=== PATIENT | male | born 1955 | race African-American/Black ===

== ENCOUNTER 2021-06-30 14:02 | Inpatient (IN) | payer OTHER ==
[2021-06-30 14:52] LABS: #Lymphocytes 0.9 thou/uL (1.20-3.40); #Monocytes 0.8 thou/uL (0.11-0.59); #Neutrophils 11.6 thou/uL (1.40-6.50); %Basophils 0.1 % (0.0-1.0); %Eosinophils 0.1 % (0.0-10.0); %Lymphocytes 7.1 % (21.0-51.0); %Monocytes 5.8 % (0.0-10.0); %Neutrophils 86.9 % (42.0-75.0); Hemoglobin 16.1 g/dL (14.0-18.0); Mean Corpuscular HGB CONC 31.3 g/dL (32.0-36.0); Mean Corpuscular Hemoglobin 28.4 pg (27.0-31.0); Mean Corpuscular Volume 90.6 fL (78.0-98.0); Mean Platelet Volume 7.4 fL (7.4-10.4); Platelet Count 368 thou/uL (130-400); RBC Distribution Width 12.5 % (11.5-14.5); Red Blood Cell (RBC) Count 5.69 mill/uL (4.70-6.10); White Blood Cell (WBC) Count 13.4 thou/uL (4.8-10.8)
[2021-06-30] MEDS ORDERED: cefTRIAXone\\ROCEPHIN 1 GM VIAL ONE (15:00)
[2021-06-30 15:17] LABS: ALT (SGPT) 10 U/L (8-55); AST (SGOT) 11 U/L (5-34); Albumin 4.1 g/dL (3.4-4.8); Alkaline Phosphatase 88 U/L (40-110); Anion Gap 15 mmol/L (10-20); BUN (Urea Nitrogen) 16 mg/dL (8.4-25.7); Bilirubin, Total 0.8 mg/dL (0.2-1.2); Calc. Creatinine Clearance 0 mL/min (70-130); Calcium 10.1 mg/dL (7.8-10.44); Carbon Dioxide 27 mmol/L (23-31); Chloride 101 mmol/L (98-107); Glucose 228 mg/dL (80-115); Lipase 46 U/L (8-78); Magnesium 2.1 mg/dL (1.6-2.6); Potassium 4.5 mmol/L (3.5-5.1); Protein, Total 8.1 g/dL (5.8-8.1); Sodium 138 mmol/L (136-145)
[2021-06-30 16:01] LABS: Bacteria/HPF None Seen HPF (None Seen); Bilirubin Negative (Negative); Blood, Urine Negative (Negative); Clarity Clear (Clear); Glucose, Urine (Dipstick) 200 mg/dL (Negative); Ketone, Urine Negative (Negative); Leukocyte Negative Leu/uL (Negative); Nitrite Negative (Negative); Protein, Urine (Dipstick) 100 mg/dL (Neg-Trace); RBC/HPF 0-3 HPF (0-3); Specific Gravity, Urine 1.033 (1.002-1.036); Squamous Epithelial 0-3 HPF (0-3); Urobilinogen 3 mg/dL (Less than 2); WBC/HPF 0-3 HPF (0-3); pH, Urine 5.5 (5.0-9.0)
[2021-06-30] MEDS ORDERED: Vancomycin 1 GM/200 ML BAG ONE (16:07)
[2021-06-30] MEDS ORDERED: Acetaminophen 500 MG TAB ONE (16:07)
[2021-06-30] MEDS ORDERED: Ondansetron PF 4 MG/2 ML Vial ONE (16:14)
[2021-06-30] MEDS ORDERED: Furosemide 40 MG/4 ML VIAL ONE (16:14)
[2021-06-30 16:48] LABS: Free T4 (Free Thyroxine) 1.19 ng/dL (0.70-1.48); Thyroid Stimulating Hormone 0.3489 uIU/mL (0.35-4.94)
[2021-06-30 17:36] LABS: SARS-CoV-2 NAA Rapid Test Not Detected (NotDetected)
[2021-06-30 19:09] LABS: Lactic Acid 2.4 mmol/L (0.5-2.2)
[2021-06-30] MEDS ORDERED: Calcium Carbonate 500 MG ChewTAB PO PRN (19:33)
[2021-06-30] MEDS ORDERED: Dextrose 5% in Water 1,000 ML IV PRN (19:33)
[2021-06-30] MEDS ORDERED: Dextrose 50% Abboject 50 ML SYRINGE SLOW IVP PRN (19:33)
[2021-06-30] MEDS ORDERED: Acetaminophen 325 MG TAB PO PRN (19:33)
[2021-06-30] MEDS ORDERED: Acetaminophen 650 MG Suppository PR PRN (19:33)
[2021-06-30] MEDS ORDERED: HumaLOG 300 UNITS/3 ML VIAL SC PRN ×2 (19:36)
[2021-06-30] MEDS ORDERED: predniSONE 20 MG TAB PO SCH (20:45)
[2021-07-01 05:00] LABS: Hemoglobin 14.9 g/dL (14.0-18.0); Mean Corpuscular HGB CONC 32.6 g/dL (32.0-36.0); Mean Corpuscular Hemoglobin 29.4 pg (27.0-31.0); Mean Corpuscular Volume 90.2 fL (78.0-98.0); Mean Platelet Volume 7.1 fL (7.4-10.4); Platelet Count 357 thou/uL (130-400); RBC Distribution Width 12.4 % (11.5-14.5); Red Blood Cell (RBC) Count 5.08 mill/uL (4.70-6.10); White Blood Cell (WBC) Count 13.8 thou/uL (4.8-10.8)
[2021-07-01 05:23] LABS: Anion Gap 14 mmol/L (10-20); BUN (Urea Nitrogen) 15 mg/dL (8.4-25.7); Calc. Creatinine Clearance 56 mL/min (70-130); Calcium 9.7 mg/dL (7.8-10.44); Carbon Dioxide 25 mmol/L (23-31); Chloride 100 mmol/L (98-107); Glucose 259 mg/dL (80-115); Sodium 135 mmol/L (136-145)
[2021-07-01 05:55] LABS: Band 5 % (5-11); Lymphocytes 4 % (21-51); MDiff Complete? YES; Monocytes 4 % (0-10); Neutrophil 87 % (42-75)
[2021-07-01] MEDS ORDERED: FLU VACC QS2021-22(65YR UP)/PF 240 MCG/0.7 ML SYRINGE IM ONE (09:00)
[2021-07-01] MEDS ORDERED: HumaLOG 300 UNITS/3 ML VIAL SC PRN (09:08)
[2021-07-01] MEDS ORDERED: Ondansetron PF 4 MG/2 ML Vial IVP PRN (09:34)
[2021-07-01] MEDS ORDERED: Doxycycline 100 MG CAP PO SCH ×2 (10:00→10:01)
[2021-07-01] MEDS: predniSONE 20 MG TAB PO SCH (10:02)
[2021-07-01] MEDS: Enoxaparin Sodium 30 MG/0.3 ML SYRINGE SC SCH (10:02)
[2021-07-01] MEDS ORDERED: ISOVUE-370 76%-LOCM 1 ML ONE (11:17)
[2021-07-01] MEDS ORDERED: Lactated Ringer's 500 ML IV SCH (12:00)
[2021-07-01] MEDS: HumaLOG 300 UNITS/3 ML VIAL SC PRN ×2 (12:07→17:56)
[2021-07-01] MEDS: Tamsulosin HCl 0.4 MG CAP PO SCH (20:28)
[2021-07-01] MEDS: Cefdinir 300 MG CAP PO SCH (20:28)
[2021-07-02 05:36] LABS: #Lymphocytes 1.9 thou/uL (1.20-3.40); #Neutrophils 12.5 thou/uL (1.40-6.50); %Basophils 0.1 % (0.0-1.0); %Eosinophils 0.3 % (0.0-10.0); %Lymphocytes 12.2 % (21.0-51.0); %Monocytes 6.2 % (0.0-10.0); %Neutrophils 81.3 % (42.0-75.0); Hemoglobin 15.5 g/dL (14.0-18.0); Mean Corpuscular HGB CONC 30.6 g/dL (32.0-36.0); Mean Corpuscular Hemoglobin 28.2 pg (27.0-31.0); Mean Corpuscular Volume 92.2 fL (78.0-98.0); Mean Platelet Volume 7.9 fL (7.4-10.4); Platelet Count 349 thou/uL (130-400); RBC Distribution Width 12.5 % (11.5-14.5); White Blood Cell (WBC) Count 15.3 thou/uL (4.8-10.8)
[2021-07-02 05:58] LABS: Anion Gap 15 mmol/L (10-20); BUN (Urea Nitrogen) 17 mg/dL (8.4-25.7); Calc. Creatinine Clearance 65 mL/min (70-130); Calcium 10.1 mg/dL (7.8-10.44); Carbon Dioxide 24 mmol/L (23-31); Chloride 103 mmol/L (98-107); Glucose 122 mg/dL (80-115); Phosphorus 3.3 mg/dL (2.3-4.7); Sodium 138 mmol/L (136-145)
[2021-07-02] MEDS: Cefdinir 300 MG CAP PO SCH ×2 (08:04→20:33)
[2021-07-02] MEDS: Enoxaparin Sodium 30 MG/0.3 ML SYRINGE SC SCH (08:05)
[2021-07-02] MEDS: predniSONE 20 MG TAB PO SCH (08:05)
[2021-07-02] MEDS: Doxycycline 100 MG CAP PO SCH ×2 (08:05→20:34)
[2021-07-02] MEDS ORDERED: Metoprolol Tartrate 25 MG TAB PO SCH ×2 (10:00→21:00)
[2021-07-02] MEDS: HumaLOG 300 UNITS/3 ML VIAL SC PRN ×2 (11:27→17:09)
[2021-07-02] MEDS ORDERED: Bisacodyl 5 MG TAB PO PRN (14:41)
[2021-07-02] MEDS ORDERED: Polyethylene Glycol 3350 17 GM Packet PO SCH (14:45)
[2021-07-02] MEDS: Senokot S 8.6-50 MG TAB PO SCH (20:33)
[2021-07-02] MEDS: Tamsulosin HCl 0.4 MG CAP PO SCH (20:33)
[2021-07-03 05:00] LABS: #Eosinphils 0.1 thou/uL (0.0-0.7); #Lymphocytes 2.1 thou/uL (1.20-3.40); #Monocytes 0.9 thou/uL (0.11-0.59); #Neutrophils 11.9 thou/uL (1.40-6.50); %Basophils 0.2 % (0.0-1.0); %Eosinophils 0.5 % (0.0-10.0); %Lymphocytes 13.9 % (21.0-51.0); %Monocytes 6.2 % (0.0-10.0); %Neutrophils 79.2 % (42.0-75.0); Hemoglobin 14.8 g/dL (14.0-18.0); Mean Corpuscular HGB CONC 31.2 g/dL (32.0-36.0); Mean Corpuscular Hemoglobin 28.3 pg (27.0-31.0); Mean Corpuscular Volume 90.5 fL (78.0-98.0); Mean Platelet Volume 7.4 fL (7.4-10.4); Platelet Count 385 thou/uL (130-400); RBC Distribution Width 12.3 % (11.5-14.5); Red Blood Cell (RBC) Count 5.23 mill/uL (4.70-6.10); White Blood Cell (WBC) Count 15.1 thou/uL (4.8-10.8)
[2021-07-03 05:22] LABS: Anion Gap 12 mmol/L (10-20); BUN (Urea Nitrogen) 25 mg/dL (8.4-25.7); Calc. Creatinine Clearance 62 mL/min (70-130); Calcium 9.3 mg/dL (7.8-10.44); Carbon Dioxide 26 mmol/L (23-31); Chloride 101 mmol/L (98-107); Cholesterol 226 mg/dl (< 200 Desired); Glucose 148 mg/dL (80-115); HDL Cholesterol 45 mg/dL (>60 Neg Risk); LDL Cholesterol, Calculated 155 mg/dL; Magnesium 1.8 mg/dL (1.6-2.6); Phosphorus 2.9 mg/dL (2.3-4.7); Potassium 4.1 mmol/L (3.5-5.1); Sodium 135 mmol/L (136-145); Triglycerides 128 mg/dL (Less than 150)
[2021-07-03] MEDS ORDERED: Magnesium 2 GM/50 ML 2 GM in Premix Bag 1 BAG IVPB SCH (06:15)
[2021-07-03] MEDS ORDERED: Sodium Phosphate 15 MMOL in Sodium Chloride 0.9% 250 ML 250 ML IVPB SCH ×2 (06:45→10:45)
[2021-07-03] MEDS: Enoxaparin Sodium 30 MG/0.3 ML SYRINGE SC SCH (08:50)
[2021-07-03] MEDS: Aspirin 81 mg Enteric Coated Tablet PO SCH (08:51)
[2021-07-03] MEDS: Senokot S 8.6-50 MG TAB PO SCH ×2 (08:51→20:53)
[2021-07-03] MEDS: Cefdinir 300 MG CAP PO SCH (08:51)
[2021-07-03] MEDS: Doxycycline 100 MG CAP PO SCH (08:51)
[2021-07-03] MEDS: predniSONE 20 MG TAB PO SCH (08:51)
[2021-07-03] MEDS ORDERED: Polyethylene Glycol 3350 17 GM Packet PO SCH (09:00)
[2021-07-03] MEDS ORDERED: Bisacodyl 5 MG TAB PO SCH (09:15)
[2021-07-03] MEDS: HumaLOG 300 UNITS/3 ML VIAL SC PRN (11:15)
[2021-07-03] MEDS ORDERED: ISOVUE-370 76%-LOCM 1 ML ONE (11:39)
[2021-07-03 14:57] LABS: Ref Lab Test Ordered RESP PROFILE; Reference Lab Name LABCORP
[2021-07-03] MEDS ORDERED: Pantoprazole 40 MG GRANULES PACKET PO SCH (16:00)
[2021-07-03] MEDS ORDERED: Carvedilol 3.125 MG TAB PO SCH (17:00)
[2021-07-03] MEDS ORDERED: Insulin Regular 300 UNITS/3 ML VIAL SC PRN (17:20)
[2021-07-03] MEDS: Insulin Regular 300 UNITS/3 ML VIAL SC PRN (18:01)
[2021-07-03] MEDS: Lantus 1000 UNITS/10 ML VIAL SC SCH (20:52)
[2021-07-03] MEDS: Polyethylene Glycol 3350 17 GM Packet PO SCH (20:53)
[2021-07-03] MEDS: Rosuvastatin 20 MG TAB PO SCH (20:53)
[2021-07-03] MEDS: Tamsulosin HCl 0.4 MG CAP PO SCH (20:53)
[2021-07-03] MEDS ORDERED: Rosuvastatin 20 MG TAB PO SCH (21:00)
[2021-07-04 05:12] LABS: Anion Gap 11 mmol/L (10-20); BUN (Urea Nitrogen) 25 mg/dL (8.4-25.7); Calc. Creatinine Clearance 61 mL/min (70-130); Carbon Dioxide 24 mmol/L (23-31); Chloride 103 mmol/L (98-107); Glucose 151 mg/dL (80-115); Phosphorus 3.5 mg/dL (2.3-4.7); Potassium 4.2 mmol/L (3.5-5.1); Sodium 134 mmol/L (136-145)
[2021-07-04 05:35] LABS: Band 1 % (5-11); Hemoglobin 15.8 g/dL (14.0-18.0); Lymphocytes 9 % (21-51); MDiff Complete? YES; Mean Corpuscular HGB CONC 33.1 g/dL (32.0-36.0); Mean Corpuscular Hemoglobin 29.8 pg (27.0-31.0); Mean Platelet Volume 6.8 fL (7.4-10.4); Monocytes 3 % (0-10); Neutrophil 87 % (42-75); Platelet Count 426 thou/uL (130-400); Platelet Morphology Comment Appears Increased; RBC Distribution Width 12.3 % (11.5-14.5); RBC Morphology Normal; Red Blood Cell (RBC) Count 5.29 mill/uL (4.70-6.10); White Blood Cell (WBC) Count 18.2 thou/uL (4.8-10.8)
[2021-07-04] MEDS: Insulin Regular 300 UNITS/3 ML VIAL SC PRN ×3 (06:03→17:40)
[2021-07-04] MEDS ORDERED: Carvedilol 3.125 MG TAB PO SCH ×2 (08:00→08:33)
[2021-07-04] MEDS: predniSONE 20 MG TAB PO SCH (08:55)
[2021-07-04] MEDS: Aspirin 81 mg Enteric Coated Tablet PO SCH (08:55)
[2021-07-04] MEDS: Pantoprazole 40 MG GRANULES PACKET PO SCH (08:55)
[2021-07-04] MEDS: Polyethylene Glycol 3350 17 GM Packet PO SCH ×2 (08:55→20:55)
[2021-07-04] MEDS: Senokot S 8.6-50 MG TAB PO SCH ×2 (08:55→20:56)
[2021-07-04] MEDS: Carvedilol 6.25 MG TAB PO SCH ×2 (08:56→17:40)
[2021-07-04] MEDS: Enoxaparin Sodium 30 MG/0.3 ML SYRINGE SC SCH (08:56)
[2021-07-04] MEDS: Lantus 1000 UNITS/10 ML VIAL SC SCH (20:55)
[2021-07-04] MEDS: Tamsulosin HCl 0.4 MG CAP PO SCH (20:56)
[2021-07-04] MEDS: Rosuvastatin 20 MG TAB PO SCH (20:56)
[2021-07-05 04:56] LABS: #Eosinphils 0.1 thou/uL (0.0-0.7); #Lymphocytes 2.1 thou/uL (1.20-3.40); #Monocytes 0.9 thou/uL (0.11-0.59); #Neutrophils 14.3 thou/uL (1.40-6.50); %Basophils 0.1 % (0.0-1.0); %Eosinophils 0.5 % (0.0-10.0); %Lymphocytes 12.3 % (21.0-51.0); %Monocytes 5.3 % (0.0-10.0); %Neutrophils 81.9 % (42.0-75.0); Hemoglobin 14.6 g/dL (14.0-18.0); Mean Corpuscular HGB CONC 32.9 g/dL (32.0-36.0); Mean Corpuscular Volume 91.1 fL (78.0-98.0); Mean Platelet Volume 7.4 fL (7.4-10.4); Platelet Count 384 thou/uL (130-400); RBC Distribution Width 12.4 % (11.5-14.5); Red Blood Cell (RBC) Count 4.87 mill/uL (4.70-6.10); White Blood Cell (WBC) Count 17.5 thou/uL (4.8-10.8)
[2021-07-05 05:12] LABS: Anion Gap 11 mmol/L (10-20); BUN (Urea Nitrogen) 30 mg/dL (8.4-25.7); Calc. Creatinine Clearance 52 mL/min (70-130); Calcium 8.9 mg/dL (7.8-10.44); Carbon Dioxide 25 mmol/L (23-31); Chloride 103 mmol/L (98-107); Glucose 145 mg/dL (80-115); Phosphorus 3.6 mg/dL (2.3-4.7); Potassium 4.2 mmol/L (3.5-5.1); Sodium 135 mmol/L (136-145)
[2021-07-05] MEDS: Insulin Regular 300 UNITS/3 ML VIAL SC PRN ×3 (06:12→17:12)
[2021-07-05] MEDS: Aspirin 81 mg Enteric Coated Tablet PO SCH (08:47)
[2021-07-05] MEDS: Carvedilol 6.25 MG TAB PO SCH ×2 (08:47→17:14)
[2021-07-05] MEDS: Senokot S 8.6-50 MG TAB PO SCH ×2 (08:47→21:04)
[2021-07-05] MEDS: Polyethylene Glycol 3350 17 GM Packet PO SCH ×2 (08:47→21:04)
[2021-07-05] MEDS: Pantoprazole 40 MG GRANULES PACKET PO SCH (08:47)
[2021-07-05] MEDS: Enoxaparin Sodium 30 MG/0.3 ML SYRINGE SC SCH (08:48)
[2021-07-05] MEDS ORDERED: Spironolactone 25 MG TAB PO SCH ×2 (09:22→09:30)
[2021-07-05 12:13] LABS: % Free PSA 8.2 % (.); Total PSA 7.7 ng/mL (0.0-4.0)
[2021-07-05] MEDS ORDERED: Pregabalin 75 MG CAP PO SCH (12:30)
[2021-07-05] MEDS ORDERED: Lantus 1000 UNITS/10 ML VIAL SC SCH ×2 (21:00)
[2021-07-05] MEDS: Rosuvastatin 20 MG TAB PO SCH (21:03)
[2021-07-05] MEDS: Tamsulosin HCl 0.4 MG CAP PO SCH (21:04)
[2021-07-06 04:47] LABS: #Eosinphils 0.2 thou/uL (0.0-0.7); #Lymphocytes 1.9 thou/uL (1.20-3.40); #Monocytes 0.9 thou/uL (0.11-0.59); #Neutrophils 12.7 thou/uL (1.40-6.50); %Basophils 0.1 % (0.0-1.0); %Eosinophils 1.3 % (0.0-10.0); %Monocytes 5.5 % (0.0-10.0); %Neutrophils 81.2 % (42.0-75.0); Hemoglobin 15.1 g/dL (14.0-18.0); Mean Corpuscular HGB CONC 32.3 g/dL (32.0-36.0); Mean Corpuscular Hemoglobin 29.8 pg (27.0-31.0); Mean Corpuscular Volume 92.2 fL (78.0-98.0); Mean Platelet Volume 7.2 fL (7.4-10.4); Platelet Count 382 thou/uL (130-400); RBC Distribution Width 12.6 % (11.5-14.5); Red Blood Cell (RBC) Count 5.08 mill/uL (4.70-6.10); White Blood Cell (WBC) Count 15.7 thou/uL (4.8-10.8)
[2021-07-06 05:21] LABS: Anion Gap 12 mmol/L (10-20); BUN (Urea Nitrogen) 26 mg/dL (8.4-25.7); Calc. Creatinine Clearance 60 mL/min (70-130); Calcium 8.6 mg/dL (7.8-10.44); Carbon Dioxide 22 mmol/L (23-31); Chloride 106 mmol/L (98-107); Glucose 242 mg/dL (80-115); Magnesium 1.9 mg/dL (1.6-2.6); Phosphorus 2.8 mg/dL (2.3-4.7); Potassium 4.4 mmol/L (3.5-5.1); Sodium 136 mmol/L (136-145)
[2021-07-06] MEDS ORDERED: Magnesium 2 GM/50 ML 1 GM in Premix Bag 1 BAG IVPB SCH (05:30)
[2021-07-06] MEDS: Insulin Regular 300 UNITS/3 ML VIAL SC PRN (05:39)
[2021-07-06] MEDS ORDERED: Sodium Chloride 0.9% 1,000 ML IV SCH ×2 (07:45→11:02)
[2021-07-06] MEDS ORDERED: CATH Communication Order-Pharmacy FS SCH (07:45)
[2021-07-06] MEDS ORDERED: Midazolam HCl 2 mg/2 ml Vial ONE (08:09)
[2021-07-06] MEDS ORDERED: Heparin 10,000 UNITS/ 10 ML VIAL ONE (08:10)
[2021-07-06] MEDS ORDERED: Lidocaine 1% (PF) 30 ML VIAL ONE (08:10)
[2021-07-06] MEDS ORDERED: Fentanyl 100 MCG/2 ML VIAL ONE (08:10)
[2021-07-06] MEDS ORDERED: Protamine Sulfate 50 MG/5 ML VIAL ONE (09:16)
[2021-07-06] MEDS ORDERED: DOPamine 400 MG/D5W 250 ML 250 ML ONE (09:25)
[2021-07-06] MEDS ORDERED: Polyethylene Glycol 3350 17 GM Packet PO PRN (09:45)
[2021-07-06] MEDS ORDERED: Senokot S 8.6-50 MG TAB PO PRN (09:46)
[2021-07-06] MEDS ORDERED: Bivalirudin 250 MG VIAL ONE (09:51)
[2021-07-06] MEDS ORDERED: Iopamidol 370 76% 100 ML VIAL ONE (10:50)
[2021-07-06] MEDS ORDERED: Nitroglycerin 0.4 MG TAB (25 Tab Bottle) SL PRN (11:02)
[2021-07-06] MEDS ORDERED: Sodium Chloride 0.9% 200 ML IV PRN (11:02)
[2021-07-06] MEDS: Spironolactone 25 MG TAB PO SCH (12:16)
[2021-07-06] MEDS: Aspirin 81 mg Enteric Coated Tablet PO SCH (13:15)
[2021-07-06] MEDS: Carvedilol 6.25 MG TAB PO SCH ×2 (13:45→16:40)
[2021-07-06] MEDS: Pantoprazole 40 MG GRANULES PACKET PO SCH (13:46)
[2021-07-06] MEDS: Pregabalin 75 MG CAP PO SCH (13:46)
[2021-07-06 16:24] LABS: SARS-CoV-2 NAA Rapid Test Not Detected (NotDetected)
[2021-07-06] MEDS: HumaLOG 300 UNITS/3 ML VIAL SC PRN (16:39)
[2021-07-06] MEDS: DOPamine 400 MG/D5W 250 ML 250 ML IVPB SCH (18:19)
[2021-07-06] MEDS: Polyethylene Glycol 3350 17 GM Packet PO SCH (19:21)
[2021-07-06] MEDS: Senokot S 8.6-50 MG TAB PO SCH (19:22)
[2021-07-06] MEDS: Rosuvastatin 20 MG TAB PO SCH (20:16)
[2021-07-07 05:26] LABS: #Eosinphils 0.1 thou/uL (0.0-0.7); #Lymphocytes 2.1 thou/uL (1.20-3.40); #Neutrophils 11.4 thou/uL (1.40-6.50); %Basophils 0.2 % (0.0-1.0); %Lymphocytes 14.2 % (21.0-51.0); %Monocytes 6.6 % (0.0-10.0); %Neutrophils 78.1 % (42.0-75.0); Hemoglobin 13.1 g/dL (14.0-18.0); Mean Corpuscular HGB CONC 31.5 g/dL (32.0-36.0); Mean Corpuscular Hemoglobin 28.9 pg (27.0-31.0); Mean Corpuscular Volume 91.5 fL (78.0-98.0); Mean Platelet Volume 7.4 fL (7.4-10.4); Platelet Count 346 thou/uL (130-400); RBC Distribution Width 12.4 % (11.5-14.5); Red Blood Cell (RBC) Count 4.53 mill/uL (4.70-6.10); White Blood Cell (WBC) Count 14.6 thou/uL (4.8-10.8)
[2021-07-07 05:41] LABS: Anion Gap 8 mmol/L (10-20); BUN (Urea Nitrogen) 21 mg/dL (8.4-25.7); Calc. Creatinine Clearance 63 mL/min (70-130); Calcium 8.5 mg/dL (7.8-10.44); Carbon Dioxide 27 mmol/L (23-31); Chloride 103 mmol/L (98-107); Glucose 217 mg/dL (80-115); Potassium 4.5 mmol/L (3.5-5.1); Sodium 133 mmol/L (136-145)
[2021-07-07] MEDS: Carvedilol 6.25 MG TAB PO SCH (07:48)
[2021-07-07] MEDS: Spironolactone 25 MG TAB PO SCH (07:48)
[2021-07-07] MEDS: Pantoprazole 40 MG GRANULES PACKET PO SCH (09:02)
[2021-07-07] MEDS: Pregabalin 75 MG CAP PO SCH (09:02)
[2021-07-07] MEDS: Aspirin 81 mg Enteric Coated Tablet PO SCH (09:02)
[2021-07-07] MEDS: HumaLOG 300 UNITS/3 ML VIAL SC PRN ×2 (10:58→21:04)
[2021-07-07] MEDS: DOPamine 400 MG/D5W 250 ML 250 ML IVPB SCH (13:02)
[2021-07-07] MEDS: Carvedilol 3.125 MG TAB PO SCH (16:33)
[2021-07-07] MEDS: Rosuvastatin 20 MG TAB PO SCH (21:03)
[2021-07-08 05:29] LABS: #Eosinphils 0.2 thou/uL (0.0-0.7); #Lymphocytes 1.5 thou/uL (1.20-3.40); %Basophils 0.1 % (0.0-1.0); %Eosinophils 1.1 % (0.0-10.0); %Monocytes 7.3 % (0.0-10.0); %Neutrophils 80.5 % (42.0-75.0); Hemoglobin 14.5 g/dL (14.0-18.0); Mean Corpuscular HGB CONC 32.4 g/dL (32.0-36.0); Mean Corpuscular Hemoglobin 29.6 pg (27.0-31.0); Mean Corpuscular Volume 91.5 fL (78.0-98.0); Platelet Count 345 thou/uL (130-400); RBC Distribution Width 12.6 % (11.5-14.5); White Blood Cell (WBC) Count 13.7 thou/uL (4.8-10.8)
[2021-07-08 05:52] LABS: Anion Gap 11 mmol/L (10-20); BUN (Urea Nitrogen) 18 mg/dL (8.4-25.7); Calc. Creatinine Clearance 60 mL/min (70-130); Calcium 9.1 mg/dL (7.8-10.44); Carbon Dioxide 28 mmol/L (23-31); Chloride 101 mmol/L (98-107); Glucose 162 mg/dL (80-115); Potassium 4.8 mmol/L (3.5-5.1); Sodium 135 mmol/L (136-145)
[2021-07-08] MEDS: HumaLOG 300 UNITS/3 ML VIAL SC PRN ×4 (06:25→20:49)
[2021-07-08 08:03] LABS: SARS-CoV-2 PCR by NAA Not Detected (NotDetected)
[2021-07-08] MEDS: Aspirin 81 mg Enteric Coated Tablet PO SCH (09:14)
[2021-07-08] MEDS: Pantoprazole 40 MG GRANULES PACKET PO SCH (09:14)
[2021-07-08] MEDS: Pregabalin 75 MG CAP PO SCH (09:14)
[2021-07-08] MEDS: Carvedilol 3.125 MG TAB PO SCH ×2 (09:15→17:02)
[2021-07-08] MEDS: Spironolactone 25 MG TAB PO SCH (09:15)
[2021-07-08] MEDS: DOPamine 400 MG/D5W 250 ML 250 ML IVPB SCH (09:18)
[2021-07-08] MEDS: Rosuvastatin 20 MG TAB PO SCH (20:49)
[2021-07-09] MEDS: DOPamine 400 MG/D5W 250 ML 250 ML IVPB SCH (02:49)
[2021-07-09 05:56] LABS: #Eosinphils 0.2 thou/uL (0.0-0.7); #Lymphocytes 1.6 thou/uL (1.20-3.40); #Monocytes 0.9 thou/uL (0.11-0.59); #Neutrophils 9.6 thou/uL (1.40-6.50); %Basophils 0.4 % (0.0-1.0); %Eosinophils 1.3 % (0.0-10.0); %Lymphocytes 12.9 % (21.0-51.0); %Monocytes 7.2 % (0.0-10.0); %Neutrophils 78.3 % (42.0-75.0); Mean Corpuscular HGB CONC 32.6 g/dL (32.0-36.0); Mean Corpuscular Hemoglobin 29.6 pg (27.0-31.0); Mean Corpuscular Volume 90.8 fL (78.0-98.0); Mean Platelet Volume 7.2 fL (7.4-10.4); Platelet Count 327 thou/uL (130-400); RBC Distribution Width 12.5 % (11.5-14.5); Red Blood Cell (RBC) Count 4.73 mill/uL (4.70-6.10); White Blood Cell (WBC) Count 12.3 thou/uL (4.8-10.8)
[2021-07-09 06:12] LABS: Anion Gap 13 mmol/L (10-20); BUN (Urea Nitrogen) 21 mg/dL (8.4-25.7); Calc. Creatinine Clearance 63 mL/min (70-130); Calcium 9.3 mg/dL (7.8-10.44); Carbon Dioxide 27 mmol/L (23-31); Chloride 101 mmol/L (98-107); Glucose 172 mg/dL (80-115); Potassium 4.7 mmol/L (3.5-5.1); Sodium 136 mmol/L (136-145)
[2021-07-09] MEDS: HumaLOG 300 UNITS/3 ML VIAL SC PRN ×2 (06:28→11:28)
[2021-07-09] MEDS ORDERED: Gabapentin 100 MG CAP PO SCH (08:30)
[2021-07-09] MEDS ORDERED: Insulin Glargine 10 UNITS in Pre-Filled Syringe 1 EACH SC SCH (09:00)
[2021-07-09] MEDS: Spironolactone 25 MG TAB PO SCH (09:52)
[2021-07-09] MEDS: Pantoprazole 40 MG GRANULES PACKET PO SCH (09:52)
[2021-07-09] MEDS: Pregabalin 75 MG CAP PO SCH (09:52)
[2021-07-09] MEDS: Aspirin 81 mg Enteric Coated Tablet PO SCH (09:52)
[2021-07-09] MEDS: Carvedilol 3.125 MG TAB PO SCH ×2 (10:32→16:53)
[2021-07-09 11:51] VITALS: BMI 21.6
[2021-07-09] MEDS ORDERED: DOPamine 400 MG/D5W 250 ML 250 ML IVPB SCH (13:00)
[2021-07-09] MEDS: Rosuvastatin 20 MG TAB PO SCH (21:44)
[2021-07-10 04:40] LABS: Anion Gap 12 mmol/L (10-20); BUN (Urea Nitrogen) 20 mg/dL (8.4-25.7); Calc. Creatinine Clearance 58 mL/min (70-130); Calcium 9.6 mg/dL (7.8-10.44); Carbon Dioxide 25 mmol/L (23-31); Chloride 104 mmol/L (98-107); Glucose 131 mg/dL (80-115); Potassium 4.6 mmol/L (3.5-5.1); Sodium 136 mmol/L (136-145)
[2021-07-10 05:01] LABS: #Eosinphils 0.1 thou/uL (0.0-0.7); #Lymphocytes 1.8 thou/uL (1.20-3.40); #Monocytes 0.9 thou/uL (0.11-0.59); %Basophils 0.3 % (0.0-1.0); %Eosinophils 1.1 % (0.0-10.0); %Lymphocytes 13.8 % (21.0-51.0); %Monocytes 6.9 % (0.0-10.0); %Neutrophils 77.9 % (42.0-75.0); Hemoglobin 14.4 g/dL (14.0-18.0); Mean Corpuscular Hemoglobin 29.6 pg (27.0-31.0); Mean Corpuscular Volume 89.6 fL (78.0-98.0); Mean Platelet Volume 7.5 fL (7.4-10.4); Platelet Count 318 thou/uL (130-400); RBC Distribution Width 12.6 % (11.5-14.5); Red Blood Cell (RBC) Count 4.86 mill/uL (4.70-6.10); White Blood Cell (WBC) Count 12.8 thou/uL (4.8-10.8)
[2021-07-10] MEDS: Spironolactone 25 MG TAB PO SCH (09:45)
[2021-07-10] MEDS: Aspirin 81 mg Enteric Coated Tablet PO SCH (10:17)
[2021-07-10] MEDS: Pregabalin 75 MG CAP PO SCH (10:17)
[2021-07-10] MEDS: Pantoprazole 40 MG GRANULES PACKET PO SCH (10:18)
[2021-07-10] MEDS: Lantus 1000 UNITS/10 ML VIAL SC SCH (10:22)
[2021-07-10] MEDS: Carvedilol 3.125 MG TAB PO SCH ×2 (10:27→17:50)
[2021-07-10] MEDS ORDERED: Lisinopril 2.5 MG TAB PO SCH (12:15)
[2021-07-10] MEDS: Rosuvastatin 20 MG TAB PO SCH (21:50)
[2021-07-10] MEDS ORDERED: Gabapentin 100 MG CAP PO SCH (22:45)
[2021-07-11 05:24] LABS: #Basophils 0.1 thou/uL (0.0-0.2); #Eosinphils 0.1 thou/uL (0.0-0.7); #Lymphocytes 1.7 thou/uL (1.20-3.40); #Monocytes 0.8 thou/uL (0.11-0.59); #Neutrophils 10.4 thou/uL (1.40-6.50); %Basophils 0.6 % (0.0-1.0); %Eosinophils 0.9 % (0.0-10.0); %Lymphocytes 12.9 % (21.0-51.0); %Monocytes 6.1 % (0.0-10.0); %Neutrophils 79.6 % (42.0-75.0); Hemoglobin 15.3 g/dL (14.0-18.0); Mean Corpuscular HGB CONC 30.6 g/dL (32.0-36.0); Mean Corpuscular Hemoglobin 27.8 pg (27.0-31.0); Mean Corpuscular Volume 91.1 fL (78.0-98.0); Mean Platelet Volume 7.3 fL (7.4-10.4); Platelet Count 325 thou/uL (130-400); RBC Distribution Width 12.7 % (11.5-14.5); Red Blood Cell (RBC) Count 5.49 mill/uL (4.70-6.10); White Blood Cell (WBC) Count 13.1 thou/uL (4.8-10.8)
[2021-07-11 05:28] LABS: Anion Gap 14 mmol/L (10-20); BUN (Urea Nitrogen) 28 mg/dL (8.4-25.7); Calc. Creatinine Clearance 48 mL/min (70-130); Calcium 9.7 mg/dL (7.8-10.44); Carbon Dioxide 23 mmol/L (23-31); Chloride 104 mmol/L (98-107); Glucose 157 mg/dL (80-115); Potassium 5.2 mmol/L (3.5-5.1); Sodium 136 mmol/L (136-145)
[2021-07-11] MEDS: Lantus 1000 UNITS/10 ML VIAL SC SCH (08:55)
[2021-07-11] MEDS: Pantoprazole 40 MG GRANULES PACKET PO SCH (08:57)
[2021-07-11] MEDS: Lisinopril 2.5 MG TAB PO SCH (08:57)
[2021-07-11] MEDS: Pregabalin 75 MG CAP PO SCH (08:57)
[2021-07-11] MEDS: Aspirin 81 mg Enteric Coated Tablet PO SCH (08:57)
[2021-07-11] MEDS: Spironolactone 25 MG TAB PO SCH (08:58)
[2021-07-11] MEDS: Carvedilol 3.125 MG TAB PO SCH ×2 (08:58→17:31)
[2021-07-11] MEDS ORDERED: Gabapentin 100 MG CAP PO SCH ×2 (09:00→14:30)
[2021-07-11] MEDS: HumaLOG 300 UNITS/3 ML VIAL SC PRN ×2 (14:48→21:54)
[2021-07-11] MEDS: Rosuvastatin 20 MG TAB PO SCH (21:53)
[2021-07-11] MEDS: Gabapentin 100 MG CAP PO SCH (21:54)
[2021-07-12 05:13] LABS: #Eosinphils 0.1 thou/uL (0.0-0.7); #Lymphocytes 1.9 thou/uL (1.20-3.40); #Monocytes 0.7 thou/uL (0.11-0.59); #Neutrophils 8.5 thou/uL (1.40-6.50); %Basophils 0.4 % (0.0-1.0); %Lymphocytes 16.8 % (21.0-51.0); %Neutrophils 75.8 % (42.0-75.0); Hemoglobin 15.1 g/dL (14.0-18.0); Mean Corpuscular HGB CONC 33.3 g/dL (32.0-36.0); Mean Corpuscular Hemoglobin 30.1 pg (27.0-31.0); Mean Corpuscular Volume 90.4 fL (78.0-98.0); Mean Platelet Volume 6.9 fL (7.4-10.4); Platelet Count 364 thou/uL (130-400); RBC Distribution Width 12.6 % (11.5-14.5); Red Blood Cell (RBC) Count 5.02 mill/uL (4.70-6.10); White Blood Cell (WBC) Count 11.2 thou/uL (4.8-10.8)
[2021-07-12 05:34] LABS: Anion Gap 13 mmol/L (10-20); BUN (Urea Nitrogen) 26 mg/dL (8.4-25.7); Calc. Creatinine Clearance 48 mL/min (70-130); Calcium 9.9 mg/dL (7.8-10.44); Carbon Dioxide 26 mmol/L (23-31); Chloride 102 mmol/L (98-107); Glucose 126 mg/dL (80-115); Potassium 4.8 mmol/L (3.5-5.1); Sodium 136 mmol/L (136-145)
[2021-07-12] MEDS: Spironolactone 25 MG TAB PO SCH (08:43)
[2021-07-12] MEDS: Aspirin 81 mg Enteric Coated Tablet PO SCH (08:43)
[2021-07-12] MEDS: Pantoprazole 40 MG GRANULES PACKET PO SCH (08:43)
[2021-07-12] MEDS: Gabapentin 100 MG CAP PO SCH ×3 (08:43→20:54)
[2021-07-12] MEDS: Lantus 1000 UNITS/10 ML VIAL SC SCH (08:44)
[2021-07-12] MEDS: Carvedilol 3.125 MG TAB PO SCH ×2 (08:44→16:07)
[2021-07-12] MEDS: Pregabalin 75 MG CAP PO SCH (08:44)
[2021-07-12] MEDS: Lisinopril 2.5 MG TAB PO SCH (08:45)
[2021-07-12] MEDS: HumaLOG 300 UNITS/3 ML VIAL SC PRN (17:28)
[2021-07-12] MEDS: Rosuvastatin 20 MG TAB PO SCH ×2 (20:54→21:10)
[2021-07-12] MEDS ORDERED: Rosuvastatin 20 MG TAB PO SCH (21:00)
[2021-07-13] MEDS: Acetaminophen/Codeine 30-300mg Tablet PO PRN (03:49)
[2021-07-13 05:49] LABS: Anion Gap 11 mmol/L (10-20); BUN (Urea Nitrogen) 26 mg/dL (8.4-25.7); Calc. Creatinine Clearance 54 mL/min (70-130); Calcium 9.4 mg/dL (7.8-10.44); Carbon Dioxide 24 mmol/L (23-31); Chloride 105 mmol/L (98-107); Glucose 164 mg/dL (80-115); Potassium 4.6 mmol/L (3.5-5.1); Sodium 135 mmol/L (136-145)
[2021-07-13] MEDS: HumaLOG 300 UNITS/3 ML VIAL SC PRN ×2 (05:50→11:30)
[2021-07-13] MEDS: Lantus 1000 UNITS/10 ML VIAL SC SCH (08:41)
[2021-07-13] MEDS: Pantoprazole 40 MG GRANULES PACKET PO SCH (08:41)
[2021-07-13] MEDS: Aspirin 81 mg Enteric Coated Tablet PO SCH (08:41)
[2021-07-13] MEDS: Spironolactone 25 MG TAB PO SCH (08:41)
[2021-07-13] MEDS: Lisinopril 2.5 MG TAB PO SCH (08:42)
[2021-07-13] MEDS: Carvedilol 3.125 MG TAB PO SCH (08:42)
[2021-07-13] MEDS: Gabapentin 100 MG CAP PO SCH ×3 (08:42→20:36)
[2021-07-13] MEDS: Pregabalin 75 MG CAP PO SCH (08:42)
[2021-07-13 15:42] LABS: SARS-CoV-2 PCR by NAA Not Detected (NotDetected)
[2021-07-13] MEDS ORDERED: DOPamine 400 MG/D5W 250 ML 250 ML IVPB SCH (16:08)
[2021-07-13] MEDS: Rosuvastatin 20 MG TAB PO SCH (20:36)
[2021-07-14] MEDS: HumaLOG 300 UNITS/3 ML VIAL SC PRN ×2 (05:46→12:37)
[2021-07-14] MEDS: Acetaminophen/Codeine 30-300mg Tablet PO PRN ×3 (10:03→21:40)
[2021-07-14] MEDS: Pregabalin 75 MG CAP PO SCH (10:06)
[2021-07-14] MEDS: Spironolactone 25 MG TAB PO SCH (10:06)
[2021-07-14] MEDS: Gabapentin 100 MG CAP PO SCH ×3 (10:06→21:39)
[2021-07-14] MEDS: Aspirin 81 mg Enteric Coated Tablet PO SCH (10:06)
[2021-07-14] MEDS: Lantus 1000 UNITS/10 ML VIAL SC SCH (10:07)
[2021-07-14] MEDS: Pantoprazole 40 MG GRANULES PACKET PO SCH (10:07)
[2021-07-14] MEDS ORDERED: DOPamine 400 MG/D5W 250 ML 250 ML IVPB SCH ×2 (10:15→17:18)
[2021-07-14] MEDS: Rosuvastatin 20 MG TAB PO SCH (21:39)
[2021-07-15 04:40] LABS: Anion Gap 15 mmol/L (10-20); BUN (Urea Nitrogen) 20 mg/dL (8.4-25.7); Calc. Creatinine Clearance 47 mL/min (70-130); Calcium 9.3 mg/dL (7.8-10.44); Carbon Dioxide 21 mmol/L (23-31); Chloride 105 mmol/L (98-107); Glucose 134 mg/dL (80-115); Potassium 4.6 mmol/L (3.5-5.1); Sodium 136 mmol/L (136-145)
[2021-07-15] MEDS: Aspirin 81 mg Enteric Coated Tablet PO SCH (09:30)
[2021-07-15] MEDS: Spironolactone 25 MG TAB PO SCH (09:30)
[2021-07-15] MEDS: Gabapentin 100 MG CAP PO SCH ×3 (09:30→21:25)
[2021-07-15] MEDS: Pregabalin 75 MG CAP PO SCH (09:30)
[2021-07-15] MEDS: Lantus 1000 UNITS/10 ML VIAL SC SCH (11:03)
[2021-07-15] MEDS: Pantoprazole 40 MG GRANULES PACKET PO SCH (11:03)
[2021-07-15 20:48] LABS: SARS-CoV-2 NAA Rapid Test Not Detected (NotDetected)
[2021-07-15] MEDS: Rosuvastatin 20 MG TAB PO SCH (21:25)
[2021-07-15] MEDS: Acetaminophen/Codeine 30-300mg Tablet PO PRN (21:26)
[2021-07-16] MEDS: Acetaminophen/Codeine 30-300mg Tablet PO PRN (06:28)
[2021-07-16] MEDS: Aspirin 81 mg Enteric Coated Tablet PO SCH (08:59)
[2021-07-16] MEDS: Gabapentin 100 MG CAP PO SCH ×2 (08:59→16:03)
[2021-07-16] MEDS: Spironolactone 25 MG TAB PO SCH (09:00)
[2021-07-16] MEDS: Pregabalin 75 MG CAP PO SCH (09:00)
[2021-07-16] MEDS: Pantoprazole 40 MG GRANULES PACKET PO SCH (09:01)
[2021-07-16] MEDS: Lantus 1000 UNITS/10 ML VIAL SC SCH (10:05)
[2021-07-16 22:11] VITALS: BP 121/57; TEMP 98.3
== END 2021-07-16 17:05 | disposition short-term general hospital (02) | DRG 286 ==
LOC: ERS 14:02 → 2NO 18:08 → CCU 07-06 09:36 → 2NO 07-09 14:26
PROVIDERS: ADMIT Emergency Medicine; ATTEND Emergency Medicine
PROC: 0T9B70Z Drainage of Bladder with Drainage Device, Via Natural or Artificial Opening (ICD-10-PCS; 2021-07-03)
PROC: 4A023N7 Measurement of Cardiac Sampling and Pressure, Left Heart, Percutaneous Approach (ICD-10-PCS; principal; 2021-07-06)
PROC: B2111ZZ Fluoroscopy of Multiple Coronary Arteries using Low Osmolar Contrast (ICD-10-PCS; 2021-07-06)
DX: I11.0 Hypertensive heart disease with heart failure (principal); I50.23 Acute on chronic systolic (congestive) heart failure; I47.2 Ventricular tachycardia; J11.1 Influenza due to unidentified influenza virus with other respiratory manifestations; I42.9 Cardiomyopathy, unspecified; J44.9 Chronic obstructive pulmonary disease, unspecified; E78.5 Hyperlipidemia, unspecified; E78.00 Pure hypercholesterolemia, unspecified; N40.0 Benign prostatic hyperplasia without lower urinary tract symptoms; F17.210 Nicotine dependence, cigarettes, uncomplicated; N40.1 Benign prostatic hyperplasia with lower urinary tract symptoms; R33.8 Other retention of urine; E11.51 Type 2 diabetes mellitus with diabetic peripheral angiopathy without gangrene; E11.69 Type 2 diabetes mellitus with other specified complication; D72.829 Elevated white blood cell count, unspecified; R91.1 Solitary pulmonary nodule; T38.0X5A Adverse effect of glucocorticoids and synthetic analogues, initial encounter; R06.6 Hiccough; Z20.822 Contact with and (suspected) exposure to COVID-19; I34.0 Nonrheumatic mitral (valve) insufficiency
CPT/HCPCS: 0240U; 36415; 36416; 51701; 71045; 71275; 80048; 80053; 80061; 81003; 81015; 83605; 83690; 83735; 83880; 84100; 84145; 84153; 84154; 84439; 84443; 84484; 85025; 85347; 85379; 87040; 87086; 87633; 93005; 93306; 93454; 93798; 94640; 94760; 96365; 96366; 96375; 97139; J0583; J0696; J1265; J1644; J1650; J1815; J1940; J2001; J2250; J2405; J2720; J3010; J3370; J3475; J7050; J7120; J7512; J7620; Q9966; Q9967; U0002; U0003; U0005

== ENCOUNTER 2021-07-26 10:06 | Emergency (ER) | payer OTHER ==
[2021-07-26 11:44] LABS: #Eosinphils 0.2 thou/uL (0.0-0.7); #Lymphocytes 1.7 thou/uL (1.20-3.40); #Monocytes 0.6 thou/uL (0.11-0.59); #Neutrophils 6.2 thou/uL (1.40-6.50); %Basophils 0.3 % (0.0-1.0); %Eosinophils 2.6 % (0.0-10.0); %Lymphocytes 19.8 % (21.0-51.0); %Monocytes 6.6 % (0.0-10.0); %Neutrophils 70.7 % (42.0-75.0); Hemoglobin 12.5 g/dL (14.0-18.0); Mean Corpuscular HGB CONC 33.6 g/dL (32.0-36.0); Mean Corpuscular Hemoglobin 29.7 pg (27.0-31.0); Mean Corpuscular Volume 88.3 fL (78.0-98.0); Mean Platelet Volume 6.7 fL (7.4-10.4); Platelet Count 283 thou/uL (130-400); RBC Distribution Width 12.7 % (11.5-14.5); Red Blood Cell (RBC) Count 4.21 mill/uL (4.70-6.10); White Blood Cell (WBC) Count 8.8 thou/uL (4.8-10.8)
[2021-07-26 11:56] LABS: PTT 35.7 sec (22.9-36.1); Prothrombin Time 13.3 sec (12.0-14.7)
[2021-07-26 12:25] LABS: Bilirubin Unable to Interpret (Negative); Clarity Turbid (Clear); Glucose, Urine (Dipstick) Unable to Interpret mg/dL (Negative); Ketone, Urine Unable to Interpret mg/dL (Negative); Leukocyte Unable to Interpret Leu/uL (Negative); Nitrite Unable to Interpret (Negative); Protein, Urine (Dipstick) Unable to Interpret mg/dL (Neg-Trace); Specific Gravity, Urine 1.023 (1.002-1.036); Urobilinogen UNABLE TO INTERPRET mg/dL (Less than 2); pH, Urine 5.4 (5.0-9.0)
[2021-07-26 12:26] LABS: Bacteria/HPF 3+ HPF (None Seen); Blood, Urine Unable to Interpret (Negative); RBC/HPF Greater than 50 HPF (0-3); Squamous Epithelial 0-3 HPF (0-3); WBC/HPF 0-3 HPF (0-3)
== END 2021-07-26 13:22 | disposition home or self-care (01) ==
LOC: ERS 10:06
DX: N30.91 Cystitis, unspecified with hematuria (principal); J44.9 Chronic obstructive pulmonary disease, unspecified; I10 Essential (primary) hypertension; E11.9 Type 2 diabetes mellitus without complications; E78.5 Hyperlipidemia, unspecified; E78.00 Pure hypercholesterolemia, unspecified; Z87.891 Personal history of nicotine dependence
CPT/HCPCS: 36415; 81003; 81015; 85025; 85610; 85730; 99283

== ENCOUNTER 2022-07-30 22:39 | Inpatient (IN) | payer OTHER ==
[2022-07-30 23:57] LABS: Bilirubin Negative (Negative); Blood, Urine Large (Negative); Glucose, Urine (Dipstick) >=1000 mg/dL (Negative); Ketone, Urine Negative (Negative); Leukocyte Negative (Negative); Nitrite Negative (Negative); Protein, Urine (Dipstick) > or equal to 300 mg/dL (Neg-Trace); Urobilinogen 0.2 mg/dL (Less than 2)
[2022-07-31 00:07] LABS: Clarity Bloody (Clear); RBC/HPF Greater than 50 HPF (0-3)
[2022-07-31 01:33] LABS: #Eosinphils 0.1 thou/uL (0.0-0.7); #Lymphocytes 1.6 thou/uL (1.20-3.40); #Monocytes 0.7 thou/uL (0.11-0.59); #Neutrophils 7.2 thou/uL (1.40-6.50); %Basophils 0.4 % (0.0-1.0); %Eosinophils 1.3 % (0.0-10.0); %Lymphocytes 16.5 % (21.0-51.0); %Monocytes 7.4 % (0.0-10.0); %Neutrophils 74.4 % (42.0-75.0); Hemoglobin 16.4 g/dL (14.0-18.0); Mean Corpuscular HGB CONC 33.9 g/dL (32.0-36.0); Mean Corpuscular Hemoglobin 30.3 pg (27.0-31.0); Mean Corpuscular Volume 89.4 fl (78.0-98.0); Mean Platelet Volume 7.9 fL (7.4-10.4); Platelet Count 204 10x3/uL (130-400); RBC Distribution Width 12.6 % (11.5-14.5); Red Blood Cell (RBC) Count 5.43 mill/uL (4.70-6.10); White Blood Cell (WBC) Count 9.6 10x3/uL (4.8-10.8)
[2022-07-31 01:46] LABS: Prothrombin Time 13.5 sec (12.0-14.7)
[2022-07-31 01:47] LABS: PTT 31.8 sec (22.9-36.1)
[2022-07-31 01:57] LABS: ALT (SGPT) 11 U/L (8-55); AST (SGOT) 14 U/L (5-34); Albumin 3.9 g/dL (3.4-4.8); Alkaline Phosphatase 78 U/L (40-110); Anion Gap 15 mmol/L (10-20); BUN (Urea Nitrogen) 30 mg/dL (8.4-25.7); Bilirubin, Total 0.2 mg/dL (0.2-1.2); Calc. Creatinine Clearance 0 mL/min (70-130); Calcium 9.4 mg/dL (7.8-10.44); Carbon Dioxide 19 mmol/L (23-31); Chloride 110 mmol/L (98-107); Estimated GFR 39; Globulin 2.9 g/dL (2.4-3.5); Glucose 166 mg/dL (80-115); Potassium 4.4 mmol/L (3.5-5.1); Protein, Total 6.8 g/dL (5.8-8.1); Sodium 140 mmol/L (136-145)
[2022-07-31] MEDS ORDERED: Acetaminophen 325 MG TAB PO PRN (03:35)
[2022-07-31] MEDS ORDERED: Senokot S 8.6-50 MG TAB PO PRN (03:35)
[2022-07-31] MEDS ORDERED: Ondansetron ODT 4 MG TAB PO PRN (03:35)
[2022-07-31 05:38] VITALS: BMI 20.9
[2022-07-31 06:37] LABS: SARS-CoV-2 NAA Rapid Test Not Detected (NotDetected)
[2022-07-31] MEDS: Famotidine 20 MG TAB PO SCH (08:31)
[2022-07-31] MEDS: Trospium 20 MG TAB PO SCH (20:26)
[2022-08-01 04:18] LABS: #Eosinphils 0.2 thou/uL (0.0-0.7); #Lymphocytes 2.3 thou/uL (1.20-3.40); #Monocytes 0.7 thou/uL (0.11-0.59); #Neutrophils 5.8 thou/uL (1.40-6.50); %Basophils 0.4 % (0.0-1.0); %Eosinophils 2.1 % (0.0-10.0); %Lymphocytes 25.9 % (21.0-51.0); %Monocytes 7.6 % (0.0-10.0); %Neutrophils 64.1 % (42.0-75.0); Hemoglobin 15.5 g/dL (14.0-18.0); Mean Corpuscular HGB CONC 32.6 g/dL (32.0-36.0); Mean Corpuscular Hemoglobin 29.6 pg (27.0-31.0); Mean Corpuscular Volume 90.9 fl (78.0-98.0); Mean Platelet Volume 8.2 fL (7.4-10.4); Platelet Count 172 10x3/uL (130-400); RBC Distribution Width 12.6 % (11.5-14.5); Red Blood Cell (RBC) Count 5.22 mill/uL (4.70-6.10)
[2022-08-01 04:38] LABS: Anion Gap 13 mmol/L (10-20); BUN (Urea Nitrogen) 24 mg/dL (8.4-25.7); Calc. Creatinine Clearance 41 mL/min (70-130); Calcium 8.9 mg/dL (7.8-10.44); Carbon Dioxide 19 mmol/L (23-31); Chloride 110 mmol/L (98-107); Estimated GFR 47; Glucose 102 mg/dL (80-115); Potassium 4.4 mmol/L (3.5-5.1); Sodium 138 mmol/L (136-145)
[2022-08-01] MEDS: Famotidine 20 MG TAB PO SCH (09:33)
[2022-08-01] MEDS: Trospium 20 MG TAB PO SCH ×2 (09:33→20:49)
[2022-08-01] MEDS: HYDROcodone/Acetaminophen 5/325 mg Tablet PO PRN ×2 (09:33→15:49)
[2022-08-01] MEDS ORDERED: SUGAMMADEX SODIUM 200 MG/2 ML VIAL ONE (11:16)
[2022-08-01] MEDS ORDERED: Famotidine/PF 20 mg/2ml Vial ONE (11:16)
[2022-08-01] MEDS ORDERED: fentaNYL PF 100 MCG/2 ML SYRINGE ONE (11:16)
[2022-08-01] MEDS ORDERED: Fentanyl 100 MCG/2 ML VIAL ONE (12:02)
[2022-08-01] MEDS ORDERED: Lidocaine 1% MPF 2 ML VIAL ONE (12:13)
[2022-08-01] MEDS ORDERED: Norepinephrine 4 MG/4 ML VIAL ONE (12:27)
[2022-08-01] MEDS ORDERED: Esmolol 100 MG/10 ML VIAL ONE (12:35)
[2022-08-01] MEDS ORDERED: Lidocaine 1% PF 5 ML VIAL ONE (12:35)
[2022-08-01] MEDS ORDERED: Ondansetron PF 4 MG/2 ML Vial ONE (12:35)
[2022-08-01] MEDS ORDERED: Rocuronium Bromide 10 MG/ML (10ML VIAL) ONE (12:35)
[2022-08-01] MEDS ORDERED: NEOSTIGMINE 3 MG/3 ML SYR 3 MG/3 ML SYRINGE ONE (12:35)
[2022-08-01] MEDS ORDERED: Glycopyrrolate 0.2 MG/ML 5 ML SYRINGE ONE (12:35)
[2022-08-01] MEDS ORDERED: Promethazine HCl 25 MG/ML VIAL IM PRN (13:31)
[2022-08-01] MEDS ORDERED: Ondansetron HCl/PF 4 MG/2 ML Vial IVP PRN (13:31)
[2022-08-01] MEDS ORDERED: Labetalol HCl 100 MG/20 ML VIAL ONE (13:44)
[2022-08-01] MEDS: Rosuvastatin 20 MG TAB PO SCH (20:49)
[2022-08-01] MEDS: metFORMIN 500 MG TAB PO SCH (20:49)
[2022-08-02] MEDS: Sacubitril 49 MG/Valsartan 51 MG TABLET PO SCH ×3 (01:06→20:42)
[2022-08-02] MEDS: HYDROcodone/Acetaminophen 5/325 mg Tablet PO PRN ×3 (01:57→15:22)
[2022-08-02] MEDS: Trospium 20 MG TAB PO SCH ×2 (08:43→20:43)
[2022-08-02] MEDS: Famotidine 20 MG TAB PO SCH (08:43)
[2022-08-02] MEDS: Empagliflozin 25 MG TAB PO SCH (08:43)
[2022-08-02] MEDS: metFORMIN 500 MG TAB PO SCH ×2 (08:43→20:43)
[2022-08-02] MEDS: Rosuvastatin 20 MG TAB PO SCH (20:42)
[2022-08-03] MEDS: HYDROcodone/Acetaminophen 5/325 mg Tablet PO PRN (04:29)
[2022-08-03] MEDS: Sacubitril 49 MG/Valsartan 51 MG TABLET PO SCH (09:00)
[2022-08-03] MEDS: metFORMIN 500 MG TAB PO SCH (09:00)
[2022-08-03] MEDS: Empagliflozin 25 MG TAB PO SCH (09:00)
[2022-08-03] MEDS: Famotidine 20 MG TAB PO SCH (09:00)
[2022-08-03] MEDS: Trospium 20 MG TAB PO SCH (09:00)
[2022-08-03 18:07] VITALS: TEMP 97.7
== END 2022-08-03 20:00 | disposition home or self-care (01) | DRG 669 ==
LOC: ERS 22:39 → IMCU/EMU 07-31 03:43 → OBSVTOIN 07-31 05:15
PROVIDERS: ADMIT Neurological Surgery; ATTEND Hospitalist
PROC: 3E1K78Z Irrigation of Genitourinary Tract using Irrigating Substance, Via Natural or Artificial Opening (ICD-10-PCS; principal; 2022-07-31)
PROC: 0T5B8ZZ Destruction of Bladder, Via Natural or Artificial Opening Endoscopic (ICD-10-PCS; 2022-08-01)
PROC: 0TBB8ZX Excision of Bladder, Via Natural or Artificial Opening Endoscopic, Diagnostic (ICD-10-PCS; 2022-08-01)
PROC: 0TCB8ZZ Extirpation of Matter from Bladder, Via Natural or Artificial Opening Endoscopic (ICD-10-PCS; 2022-08-01)
DX: R31.0 Gross hematuria (principal); I50.22 Chronic systolic (congestive) heart failure; N17.9 Acute kidney failure, unspecified; F17.210 Nicotine dependence, cigarettes, uncomplicated; I25.10 Atherosclerotic heart disease of native coronary artery without angina pectoris; E78.5 Hyperlipidemia, unspecified; I11.0 Hypertensive heart disease with heart failure; Z20.822 Contact with and (suspected) exposure to COVID-19; C61 Malignant neoplasm of prostate; R31.9 Hematuria, unspecified; I25.5 Ischemic cardiomyopathy; N40.0 Benign prostatic hyperplasia without lower urinary tract symptoms; N32.89 Other specified disorders of bladder; Z79.82 Long term (current) use of aspirin; Z79.84 Long term (current) use of oral hypoglycemic drugs; Z95.5 Presence of coronary angioplasty implant and graft; Z79.899 Other long term (current) drug therapy
CPT/HCPCS: 36415; 51702; 51798; 80048; 80053; 81003; 81015; 85025; 85610; 85730; 88305; 93005; 93010; G0378; J1642; J2405; J3010; S0028; U0002

== ENCOUNTER 2023-04-06 13:06 | Emergency (ER) | payer OTHER ==
[2023-04-06 14:00] LABS: #Basophils 0.1 thou/uL (0.0-0.2); #Eosinphils 0.2 thou/uL (0.0-0.7); #Monocytes 0.8 thou/uL (0.11-0.59); #Neutrophils 6.2 thou/uL (1.40-6.50); %Basophils 0.5 % (0.0-1.0); %Eosinophils 1.6 % (0.0-10.0); %Lymphocytes 23.4 % (21.0-51.0); %Monocytes 8.6 % (0.0-10.0); %Neutrophils 65.3 % (42.0-75.0); Hematocrit 50.2 % (42.0-52.0); Hemoglobin 16.4 g/dL (14.0-18.0); Mean Corpuscular HGB CONC 32.7 g/dL (32.0-36.0); Mean Corpuscular Hemoglobin 28.1 pg (27.0-31.0); Mean Corpuscular Volume 86.1 fl (78.0-98.0); Mean Platelet Volume 9.5 fL (7.4-10.4); Platelet Count 234 10x3/uL (130-400); RBC Distribution Width 14.2 % (11.5-14.5); Red Blood Cell (RBC) Count 5.83 mill/uL (4.70-6.10); White Blood Cell (WBC) Count 9.5 10x3/uL (4.8-10.8)
[2023-04-06 14:21] LABS: Phosphorus 4.1 mg/dL (2.3-4.7)
[2023-04-06 14:23] LABS: ALT (SGPT) 8 U/L (8-55); AST (SGOT) 14 U/L (5-34); Albumin 4.5 g/dL (3.4-4.8); Alkaline Phosphatase 88 U/L (40-110); Anion Gap 18 mmol/L (10-20); BUN (Urea Nitrogen) 58 mg/dL (8.4-25.7); Bilirubin, Total 0.2 mg/dL (0.2-1.2); Calc. Creatinine Clearance 0 mL/min (70-130); Calcium 9.8 mg/dL (7.8-10.44); Carbon Dioxide 21 mmol/L (23-31); Chloride 101 mmol/L (98-107); Estimated GFR 29; Globulin 3.5 g/dL (2.4-3.5); Glucose 104 mg/dL (80-115); Magnesium 2.4 mg/dL (1.6-2.6); Potassium 5.3 mmol/L (3.5-5.1); Sodium 135 mmol/L (136-145)
== END 2023-04-06 16:31 | disposition home or self-care (01) ==
LOC: ERS 13:06
DX: N17.9 Acute kidney failure, unspecified (principal); E86.0 Dehydration; I12.9 Hypertensive chronic kidney disease with stage 1 through stage 4 chronic kidney disease, or unspecified chronic kidney disease; E11.22 Type 2 diabetes mellitus with diabetic chronic kidney disease; N18.9 Chronic kidney disease, unspecified; J44.9 Chronic obstructive pulmonary disease, unspecified; Z87.891 Personal history of nicotine dependence
CPT/HCPCS: 36415; 80053; 83735; 84100; 85025; 99283

== ENCOUNTER 2023-08-28 19:56 | Inpatient (IN) | payer OTHER ==
[~2023-08-28 19:56] MED LIST: Iopamidol-370 76% 500 ML MDV (1 ML CHARGE) ONE
[2023-08-28] MEDS ORDERED: NOREPINEPHRINE 8 MG/250 ML-D5W 250 ML ONE (20:02)
[2023-08-28 20:12] LABS: Analyzer IN Cardio ER; Base Excess (BEa) -13.8 mEq/L (-2.0 to +3.0); Carboxyhemoglobin (COHb) 0.2 gm% (0.0-3.0); Hematocrit-ABG 58 % (42.0-52.0); Hemoglobin (Hb) 19.7 g/dL (14.0-18.0); O2 Tension (PaO2), arterial 645.7 mmHg (> 80.0); Potassium - ABG Lab 5.99 mmol/L (3.70-5.30); pH, Arterial 7.271 (7.35-7.45)
[2023-08-28] MEDS ORDERED: Fentanyl CADD 100 ML IV SCH (20:15)
[2023-08-28] MEDS ORDERED: Cefepime 2 GM VIAL ONE (20:20)
[2023-08-28] MEDS ORDERED: Sodium Chloride 0.9% 100 ML ONE (20:20)
[2023-08-28 20:34] LABS: Actual Bicarbonate (HCO3a) 10.4 mEq/L (22-28); CO2 Tension 23.2 mmHg (35.0-45.0); Puncture Site RFA
[2023-08-28] MEDS ORDERED: fentaNYL 50 mcg/mL 1 mL Vial ONE (20:37)
[2023-08-28 20:39] LABS: #Monocytes 0.8 thou/uL (0.11-0.59); #Neutrophils 13.8 thou/uL (1.40-6.50); %Basophils 0.1 % (0.0-1.0); %Lymphocytes 3.2 % (21.0-51.0); %Monocytes 5.2 % (0.0-10.0); %Neutrophils 91.2 % (42.0-75.0); Hematocrit 55.7 % (42.0-52.0); Hemoglobin 18.2 g/dL (14.0-18.0); Mean Corpuscular HGB CONC 32.7 g/dL (32.0-36.0); Mean Corpuscular Hemoglobin 28.8 pg (27.0-31.0); Mean Corpuscular Volume 88.3 fl (78.0-98.0); Platelet Count 189 10x3/uL (130-400); RBC Distribution Width 15.4 % (11.5-14.5); Red Blood Cell (RBC) Count 6.31 mill/uL (4.70-6.10); White Blood Cell (WBC) Count 15.1 10x3/uL (4.8-10.8)
[2023-08-28 20:47] LABS: Bilirubin Negative (Negative); Blood, Urine Negative (Negative); CAUTI Indications for Culture Alt mental st,lethar; Clarity Clear (Clear); Glucose, Urine (Dipstick) Greater than 1000 mg/dL (Negative); Ketone, Urine Negative (Negative); Leukocyte Negative Leu/uL (Negative); Nitrite Negative (Negative); Protein, Urine (Dipstick) 30 mg/dL (Neg-Trace); RBC/HPF 0-3 HPF (0-3); Renal Epithelial 0-3 HPF (None Seen); Specific Gravity, Urine 1.022 (1.002-1.036); Squamous Epithelial 0-3 HPF (0-3); Urobilinogen Normal mg/dL (Less than 2); WBC/HPF 0-3 HPF (0-3); Yeast-Budding Rare HPF (None Seen)
[2023-08-28 20:52] LABS: INR-International Normal Ratio 1.2; Prothrombin Time 15.1 sec (12.0-14.7)
[2023-08-28 20:57] LABS: Acetaminophen Less than 10 mcg/mL (10.0-30.0); Alcohol Less than 10.0 mg/dL (Less than 10); Lipase 188 U/L (8-78); Salicylate Less than 8.0 mg/dL (15.0-30.0)
[2023-08-28 20:58] LABS: ALT (SGPT) 16 U/L (8-55); AST (SGOT) 23 U/L (5-34); Albumin 3.6 g/dL (3.4-4.8); Alkaline Phosphatase 89 U/L (40-110); Anion Gap 25 mmol/L (10-20); Bilirubin, Total 0.4 mg/dL (0.2-1.2); CK (CPK) 1249 U/L (30-200); Calc. Creatinine Clearance 0 mL/min (70-130); Carbon Dioxide 11 mmol/L (23-31); Chloride 116 mmol/L (98-107); Estimated GFR 11; Globulin 3.2 g/dL (2.4-3.5); Glucose 325 mg/dL (80-115); Protein, Total 6.8 g/dL (5.8-8.1); Sodium 146 mmol/L (136-145)
[2023-08-28 21:00] LABS: Troponin I 0.101 ng/mL (< 0.028)
[2023-08-28 21:00] LABS: Bacteria/HPF Rare-Few HPF (None Seen)
[2023-08-28 21:01] LABS: Urine Culture Reflex No No
[2023-08-28 21:05] LABS: Amphetamine Not Detected (NotDetected); Barbiturates Screen Not Detected (NotDetected); Benzodiazepine Screen Not Detected (NotDetected); Cocaine Metabolite Screen Detected (NotDetected); Methadone Not Detected (NotDetected); Methamphetamine Not Detected (NotDetected); Opiate Screen Not Detected (NotDetected); Oxycodone Screen Not Detected (NotDetected); Phencyclidine (PCP) Not Detected (NotDetected); THC/Cannabinoid Screen Not Detected (NotDetected); Tricyclic Screen Not Detected (NotDetected)
[2023-08-28] MEDS ORDERED: niCARdipine 25 MG/10 ML SDV ONE ×2 (21:08→21:13)
[2023-08-28 21:12] LABS: BUN (Urea Nitrogen) 150 mg/dL (8.4-25.7)
[2023-08-28 22:15] LABS: Influenza A by NAA Not Detected (NotDetected); Influenza B by NAA Not Detected (NotDetected); SARS-CoV-2 NAA Rapid Test Not Detected (NotDetected)
[2023-08-28] MEDS ORDERED: HumaLOG 300 UNITS/3 ML VIAL SC PRN (23:14)
[2023-08-28] MEDS ORDERED: Glucagon 1 MG/ML KIT IM PRN (23:14)
[2023-08-28] MEDS ORDERED: Dextrose 50% Abboject 50 ML SYRINGE SLOW IVP PRN (23:14)
[2023-08-28] MEDS ORDERED: Dextrose 5% in Water 1,000 ML IV PRN (23:14)
[2023-08-28] MEDS ORDERED: niCARdipine 25 MG in Sodium Chloride 0.9% 250 ML 250 ML IVPB PRN (23:16)
[2023-08-28 23:29] LABS: Lactic Acid 2.8 mmol/L (0.5-2.2)
[2023-08-28] MEDS ORDERED: Ventilator Sedation Protocol 1 EACH FS SCH (23:30)
[2023-08-28] MEDS ORDERED: Lactated Ringer's 1,000 ML IV SCH (23:30)
[2023-08-28 23:58] LABS: Hemoglobin A1c 7.7 % (4.0-6.0)
[2023-08-29 00:09] LABS: Troponin I 0.085 ng/mL (< 0.028)
[2023-08-29] MEDS: Sodium Bicarbonate 150 MEQ in Sterile Water 1,000 ML IV SCH (00:34)
[2023-08-29] MEDS: Sodium Bicarb 50 mEq/50 ML VIAL IVP SCH (00:39)
[2023-08-29] MEDS: Insulin Regular 300 UNITS/3 ML VIAL IVP SCH (00:39)
[2023-08-29] MEDS ORDERED: Propofol 1,000 MG/100 ML VIAL IV PRN (00:45)
[2023-08-29] MEDS ORDERED: Fentanyl CADD 100 ML IV SCH (00:45)
[2023-08-29] MEDS ORDERED: Fentanyl BOLUS 250 ML IVPB PRN (00:45)
[2023-08-29] MEDS ORDERED: DISCONTINUE PREVIOUS NARCOTIC PAIN MEDICATIONS AND BENZODIAZEPINES FS SCH (00:45)
[2023-08-29] MEDS ORDERED: Propofol BOLUS 1,000 MG/100 ML VIAL IV PRN (00:45)
[2023-08-29] MEDS ORDERED: Lorazepam 2 MG/ML VIAL SLOW IVP PRN (00:45)
[2023-08-29] MEDS ORDERED: Morphine 2 MG/ML VIAL SLOW IVP PRN (00:45)
[2023-08-29] MEDS: Sodium Bicarbonate 150 MEQ in Dextrose 5% in Water 1,000 ML IV SCH (01:05)
[2023-08-29 01:29] VITALS: BMI 20.7
[2023-08-29 01:34] LABS: Actual Bicarbonate (HCO3a) 16.8 mEq/L (22-28); Base Excess (BEa) -7.4 mEq/L (-2.0 to +3.0); CO2 Tension 31.4 mmHg (35.0-45.0); Calcium, Ionized (arterial) 1.08 mmol/L (1.12-1.30); Carboxyhemoglobin (COHb) 0.5 gm% (0.0-3.0); Hematocrit-ABG 51 % (42.0-52.0); Hemoglobin (Hb) 17.2 g/dL (14.0-18.0); O2 Tension (PaO2), arterial 135.8 mmHg (> 80.0); Potassium - ABG Lab 5.41 mmol/L (3.70-5.30); pH, Arterial 7.346 (7.35-7.45)
[2023-08-29 01:36] LABS: Puncture Site RRA
[2023-08-29] MEDS: Sodium Polystyrene Sulfonate 15 GM (60 mL) BOT PER TUBE SCH (01:43)
[2023-08-29] MEDS: Vancomycin (BATCH) 1.5 GM in Premix 1 BAG IVPB SCH (01:44)
[2023-08-29] MEDS ORDERED: Vancomycin Dose by Levels Sliding Scale (Wt <71) FS SCH (01:45)
[2023-08-29] MEDS: NOREPINEPHRINE 8 MG/250 ML-D5W 250 ML IVPB PRN (02:05)
[2023-08-29 03:48] LABS: #Monocytes 1.2 thou/uL (0.11-0.59); #Neutrophils 14.1 thou/uL (1.40-6.50); %Basophils 0.2 % (0.0-1.0); %Lymphocytes 4.1 % (21.0-51.0); %Monocytes 7.7 % (0.0-10.0); %Neutrophils 87.7 % (42.0-75.0); Hematocrit 49.4 % (42.0-52.0); Hemoglobin 16.4 g/dL (14.0-18.0); Mean Corpuscular HGB CONC 33.2 g/dL (32.0-36.0); Mean Corpuscular Hemoglobin 28.5 pg (27.0-31.0); Mean Corpuscular Volume 85.8 fl (78.0-98.0); Mean Platelet Volume 10.9 fL (7.4-10.4); Platelet Count 184 10x3/uL (130-400); RBC Distribution Width 15.2 % (11.5-14.5); Red Blood Cell (RBC) Count 5.76 mill/uL (4.70-6.10); White Blood Cell (WBC) Count 16.1 10x3/uL (4.8-10.8)
[2023-08-29 04:03] LABS: Lactic Acid 2.8 mmol/L (0.5-2.2); Phosphorus 7.5 mg/dL (2.3-4.7)
[2023-08-29 04:05] LABS: Anion Gap 24 mmol/L (10-20); CK (CPK) 1382 U/L (30-200); Calc. Creatinine Clearance 11 mL/min (70-130); Calcium 8.2 mg/dL (7.8-10.44); Carbon Dioxide 17 mmol/L (23-31); Chloride 114 mmol/L (98-107); Estimated GFR 11; Glucose 228 mg/dL (80-115); Magnesium 3.7 mg/dL (1.6-2.6); Potassium 5.4 mmol/L (3.5-5.1); Sodium 150 mmol/L (136-145)
[2023-08-29 04:10] LABS: Troponin I 0.096 ng/mL (< 0.028)
[2023-08-29 04:31] LABS: BUN (Urea Nitrogen) 166 mg/dL (8.4-25.7)
[2023-08-29] MEDS: Sodium Bicarbonate 75 MEQ in Sodium Chloride 0.45% 1,000 ML IV SCH (06:11)
[2023-08-29 07:54] LABS: Actual Bicarbonate (HCO3a) 17.3 mEq/L (22-28); Base Excess (BEa) -5.9 mEq/L (-2.0 to +3.0); CO2 Tension 29.1 mmHg (35.0-45.0); Calcium, Ionized (arterial) 1.06 mmol/L (1.12-1.30); Carboxyhemoglobin (COHb) 0.6 gm% (0.0-3.0); Hematocrit-ABG 50 % (42.0-52.0); Hemoglobin (Hb) 17.1 g/dL (14.0-18.0); O2 Tension (PaO2), arterial 147.7 mmHg (> 80.0); Potassium - ABG Lab 5.11 mmol/L (3.70-5.30); pH, Arterial 7.392 (7.35-7.45)
[2023-08-29 07:56] LABS: ALV-art Gradient 29.825 mmHg (0-20); Puncture Site RRA
[2023-08-29] MEDS: Pantoprazole 40 MG VIAL IVP SCH (08:59)
[2023-08-29] MEDS: LOKELMA 10 GM PACKET PO SCH (08:59)
[2023-08-29] MEDS ORDERED: Vancomycin (BATCH) 1.5 GM in Premix 1 BAG IVPB SCH (09:00)
[2023-08-29] MEDS: Cefepime 1 GM in Sodium Chloride 0.9% 100 ML IVPB SCH (09:00)
[2023-08-29] MEDS ORDERED: Famotidine/PF 20 mg/2ml Vial SLOW IVP SCH (09:00)
[2023-08-29 10:17] LABS: Anion Gap 24 mmol/L (10-20); Calc. Creatinine Clearance 11 mL/min (70-130); Carbon Dioxide 18 mmol/L (23-31); Chloride 114 mmol/L (98-107); Estimated GFR 11; Glucose 239 mg/dL (80-115); Potassium 5.3 mmol/L (3.5-5.1)
[2023-08-29 10:20] LABS: BUN (Urea Nitrogen) Greater than 125 mg/dL (8.4-25.7); Sodium 151 mmol/L (136-145)
[2023-08-29] MEDS: HumaLOG 300 UNITS/3 ML VIAL SC PRN (11:11)
[2023-08-29] MEDS: Sodium Bicarbonate 50 MEQ in Dextrose 5% in Water 1,000 ML IV SCH (14:20)
[2023-08-29 22:04] LABS: Vancomycin, Random 19.2 ug/mL (See Comment)
[2023-08-30] MEDS: Vancomycin HCl 250 MG in Sodium Chloride 0.9% 100 ML IV SCH (00:13)
[2023-08-30 04:21] LABS: #Monocytes 0.9 thou/uL (0.11-0.59); #Neutrophils 8.2 thou/uL (1.40-6.50); %Basophils 0.1 % (0.0-1.0); %Lymphocytes 4.3 % (21.0-51.0); %Monocytes 9.7 % (0.0-10.0); %Neutrophils 85.4 % (42.0-75.0); Hematocrit 48.3 % (42.0-52.0); Hemoglobin 15.8 g/dL (14.0-18.0); Mean Corpuscular HGB CONC 32.7 g/dL (32.0-36.0); Mean Corpuscular Hemoglobin 28.3 pg (27.0-31.0); Mean Corpuscular Volume 86.4 fl (78.0-98.0); Mean Platelet Volume 11.8 fL (7.4-10.4); Platelet Count 176 10x3/uL (130-400); RBC Distribution Width 15.3 % (11.5-14.5); Red Blood Cell (RBC) Count 5.59 mill/uL (4.70-6.10); White Blood Cell (WBC) Count 9.6 10x3/uL (4.8-10.8)
[2023-08-30] MEDS: HumaLOG 300 UNITS/3 ML VIAL SC PRN ×2 (04:22→10:39)
[2023-08-30 04:44] LABS: Anion Gap 22 mmol/L (10-20); Calc. Creatinine Clearance 10 mL/min (70-130); Calcium 8.4 mg/dL (7.8-10.44); Carbon Dioxide 22 mmol/L (23-31); Chloride 109 mmol/L (98-107); Estimated GFR 10; Potassium 4.8 mmol/L (3.5-5.1); Sodium 148 mmol/L (136-145)
[2023-08-30] MEDS: Acetaminophen 650 MG/20.3 ML UDCUP PO PRN (04:44)
[2023-08-30 04:49] LABS: Critical Call Chemistry NUR.SJK1 @0449; Glucose 451 mg/dL (80-115)
[2023-08-30 04:56] LABS: BUN (Urea Nitrogen) 170 mg/dL (8.4-25.7)
[2023-08-30] MEDS: Insulin Glargine 30 UNITS/0.3 ML VIAL SC SCH (10:39)
[2023-08-30 15:16] VITALS: BP 120/72
[2023-08-30 18:35] VITALS: TEMP 100.2
[2023-08-31] MEDS ORDERED: Insulin Glargine 30 UNITS/0.3 ML VIAL SC SCH (09:00)
== END 2023-08-30 19:27 | disposition hospice, inpatient (51) | DRG 64 ==
LOC: ERS 19:56 → CCU 23:21
PROVIDERS: ADMIT Student in an Organized Health Care Education/Training Program; ATTEND Internal Medicine
PROC: 4A133R1 Monitoring of Arterial Saturation, Peripheral, Percutaneous Approach (ICD-10-PCS; principal; 2023-08-28)
PROC: 3E033XZ Introduction of Vasopressor into Peripheral Vein, Percutaneous Approach (ICD-10-PCS; 2023-08-28)
PROC: 5A1945Z Respiratory Ventilation, 24-96 Consecutive Hours (ICD-10-PCS; 2023-08-29)
DX: I60.9 Nontraumatic subarachnoid hemorrhage, unspecified (principal); A41.9 Sepsis, unspecified organism; G93.41 Metabolic encephalopathy; R65.21 Severe sepsis with septic shock; G93.6 Cerebral edema; J96.00 Acute respiratory failure, unspecified whether with hypoxia or hypercapnia; I21.A1 Myocardial infarction type 2; N17.9 Acute kidney failure, unspecified; E87.1 Hypo-osmolality and hyponatremia; E87.20 Acidosis, unspecified; I50.22 Chronic systolic (congestive) heart failure; M62.82 Rhabdomyolysis; I13.2 Hypertensive heart and chronic kidney disease with heart failure and with stage 5 chronic kidney disease, or end stage renal disease; N18.5 Chronic kidney disease, stage 5; E87.5 Hyperkalemia; C61 Malignant neoplasm of prostate; I25.10 Atherosclerotic heart disease of native coronary artery without angina pectoris; F14.10 Cocaine abuse, uncomplicated; R91.8 Other nonspecific abnormal finding of lung field; E11.22 Type 2 diabetes mellitus with diabetic chronic kidney disease; Z79.899 Other long term (current) drug therapy; Z51.5 Encounter for palliative care; Z95.5 Presence of coronary angioplasty implant and graft; Z79.82 Long term (current) use of aspirin; Z11.52 Encounter for screening for COVID-19
CPT/HCPCS: 36415; 36416; 36600; 43753; 51702; 70450; 71045; 71260; 72125; 74177; 80048; 80053; 80202; 80306; 80307; 81001; 82010; 82550; 82805; 83036; 83605; 83690; 83735; 84100; 84443; 84484; 85025; 85610; 85730; 87040; 87077; 87086; 87149; 87186; 93005; 94002; 94003; 96365; 96366; 96375; 96376; A4217; C9113; J0692; J1815; J3010; J3370; J3490; J7070; Q9967

== ENCOUNTER 2023-08-30 20:50 | Inpatient (IN) | payer OTHER ==
[2023-08-30] MEDS ORDERED: Scopolamine 1 mg/72 hour Patch TOP PRN (21:00)
[2023-08-30] MEDS ORDERED: Acetaminophen 650 MG Suppository PR PRN (21:00)
[2023-08-30] MEDS ORDERED: Ondansetron PF 4 MG/2 ML Vial IVP PRN (21:00)
[2023-08-30] MEDS: Morphine 2 MG/ML VIAL SLOW IVP PRN (21:24)
[2023-08-30] MEDS: Lorazepam 2 MG/ML VIAL SLOW IVP PRN (21:24)
[2023-08-30] MEDS: Lorazepam 2 MG/ML VIAL SLOW IVP SCH (22:31)
[2023-08-30] MEDS: Morphine 2 MG/ML VIAL SLOW IVP SCH (22:31)
== END 2023-08-30 22:50 | disposition expired | DRG 951 ==
LOC: CCU 20:50
PROVIDERS: ADMIT Family Medicine; ATTEND Family Medicine
DX: Z51.5 Encounter for palliative care (principal); J96.00 Acute respiratory failure, unspecified whether with hypoxia or hypercapnia; I21.4 Non-ST elevation (NSTEMI) myocardial infarction; A41.9 Sepsis, unspecified organism; R65.21 Severe sepsis with septic shock; N17.9 Acute kidney failure, unspecified; E87.20 Acidosis, unspecified; M62.82 Rhabdomyolysis; I50.22 Chronic systolic (congestive) heart failure; E11.9 Type 2 diabetes mellitus without complications; Z11.52 Encounter for screening for COVID-19; Z79.82 Long term (current) use of aspirin; Z79.899 Other long term (current) drug therapy; Z79.84 Long term (current) use of oral hypoglycemic drugs; I11.0 Hypertensive heart disease with heart failure
CPT/HCPCS: J2060; J2272